=== PATIENT | female | born 1960 | race Caucasian/White ===

== ENCOUNTER 2018-07-19 14:12 | Emergency (ER) | payer OTHER ==
[~2018-07-19] VITALS: Ht 154.9 cm; Wt 73.0 kg
[2018-07-19 15:18] VITALS: Ht 154.9 cm; Wt 73.0 kg
[2018-07-19] MEDS ORDERED: ONDANSETRON 4 MG INJ IV STA (16:26)
[2018-07-19] MEDS ORDERED: SOD CHLORIDE 0.9% 1,000 ML IV STA (16:26)
[2018-07-19] MEDS ORDERED: IPRATROPIUM (NEB) 0.5 MG/2.5 ML AMP NEB STA (16:26)
[2018-07-19] MEDS ORDERED: ALBUTEROL 0.083% (NEB) 2.5 MG/3 ML AMP NEB STA (16:26)
[2018-07-19] MEDS ORDERED: morphine 4 MG/ML VIAL IV STA (16:26)
[2018-07-19] MEDS ORDERED: BENZONATATE 100 MG CAP PO ONE (16:30)
--- NOTE | 2018-07-19 16:30 | ERD ---
ER Documentation Chief Complaint Chief Complaint SORE THROAT WITH COUGH-WORSE AT NIGHT X 1 WEEK, HX HTN & DM HPI This is a 58-year-old female with a known history of wwg-[id number]-yboiwxrhf diabetes mellitus hypertension and high cholesterol the presents to the emergency department complaining of a productive cough for the past 1 week. The patient indicates her symptoms are worse at night. She also indicates that she has been experiencing a sore throat. She has no shortness of breath at rest or exertion. She had no recent travel or hospitalizations. She has had no sick contacts. She had a tactile fever with shaking and chills. She has not taken any antibiotics or gpeh-fha-verhqqd medications. ROS All systems reviewed and are negative except as per history of present illness. Medications Home Meds Active Scripts Benzonatate* (Tessalon Perle*) 100 Mg Capsule, 100 MG PO Q8H PRN for COUGH for 10 Days, CAP Prov:LIZETH GUTIERREZ MD 07/19/18 Ibuprofen* (Motrin*) 600 Mg Tab, 600 MG PO Q6H PRN for PAIN AND OR ELEVATED TEMP, #30 TAB Prov:LIZETH GUTIERREZ MD 07/19/18 Azithromycin* (Zithromax*) 250 Mg Tablet, 250 MG PO DAILY for 4 Days, TAB Prov:LIZETH GUITERREZ MD 07/19/18 Reported Medications Glimepiride* (Glimepiride*) 1 Mg Tablet, 1 MG PO WITH BREAKFAST, TAB 07/19/18 Ergocalciferol (Vitamin D2) (VITAMIN D2) 2,000 Unit Tablet, 2000 UNIT PO DAILY, TAB 07/19/18 Metformin Hcl* (Metformin Hcl*) 850 Mg Tablet, 850 MG PO AC A, #60 TAB THREE TIMES DAILY 07/19/18 Aspirin (Low Dose Aspirin) 81 Mg Tablet.dr, 81 MG PO DAILY, #30 TAB 07/19/18 Losartan Potassium* (Losartan Potassium*) 50 Mg Tablet, 50 MG PO DAILY, TAB 07/19/18 Atorvastatin* (Atorvastatin*) 40 Mg Tablet, 50 MG PO QHS, #30 TAB PT TAKE 1 40MG TAB AND 1/2 OF A 20MG 07/19/18 Calcium Carbonate/Vitamin D3 ([place]co 500+D Tablet) 1 Each Tablet, 1 EACH PO BID, TAB 07/19/18 Allergies Allergies: Coded Allergies: No Known Allergy (Unverified , 07/19/18) PMhx/Soc History of Surgery: Yes (CHOLECYSTECTOMY,C SECTION X3) Anesthesia Reaction: No Hx Neurological Disorder: No Hx Respiratory Disorders: No Hx Cardiac Disorders: Yes (HTN) Hx Psychiatric Problems: No Hx Miscellaneous Medical Probl: Yes (DM,HIGH CHOLESTEROL) Hx Alcohol Use: No Hx Substance Use: No Hx Tobacco Use: No Smoking Status: Never smoker Physical Exam Vitals Vital Signs Date Temp Pulse Resp B/P (MAP) Pulse Ox O2 O2 Flow FiO2 Time Delivery Rate 07/19/18 98.3 90 22 137/86 99 Room Air 18:30 (103) 07/19/18 87 14 98 21 16:46 07/19/18 99.1 91 20 173/85 97 15:18 (114) Physical Exam Constitutional:Well-developed. Well-nourished. HEENT:Normocephalic. Atraumatic.Pupils were equal round reactive to light. Moist mucous membranes.No tonsillar exudates with enlargement of both tonsils and uvula is midline. Erythema both tonsils. Neck: No nuchal rigidity. No lymphadenopathy. No posterior cervical spine tenderness or step-offs. Respiratory: Not using accessory muscles of respiration.Lungs were clear to auscultation bilaterally. No rhonchi. No rales. Mild wheezing on end auscu ltation bilaterally Cardiovascular: Regular rate regular rhythm.No murmurs. No rubs were appreciated .S1, S2 normal. Distal pulses are palpable 2+ bilaterally. GI: Abdomen was soft. Nontender. Non Distended. No pulsatile abdominal masses or bruits. No rebound. No guarding. Bowel sounds were present and normal. Muscle skeletal: Full range of motion of both the upper and lower extremities bilaterally.Normal muscle tone.No assymetrical calf tenderness or swelling. Skin: No petechia, no purpura. No lesions on the palms or the soles of the feet. No maculopapular rash. NEURO: Patient was alert, awake, orientated x3.No facial droop. Gait observed and normal with no ataxia.Speech had regular rate and rhythm. No focal neurological deficits. Result Diagram: 07/19/18 1639 07/19/18 1639 Results 24 hrs Laboratory Tests Test 07/19/18 16:07 07/19/18 16:39 POC Beta HCG, Qualitative NEGATIVE White Blood Count 14.3 10^3/ul Red Blood Count 4.36 10^6/ul Hemoglobin 12.8 g/dl Hematocrit 39.1 % Mean Corpuscular Volume 89.7 fl Mean Corpuscular Hemoglobin 29.4 pg Mean Corpuscular Hemoglobin Concent 32.7 g/dl Red Cell Distribution Width 13.1 % Platelet Count 297 10^3/UL Mean Platelet Volume 9.7 fl Immature Granulocytes % 0.600 % Neutrophils % 63.0 % Lymphocytes % 26.2 % Monocytes % 7.3 % Eosinophils % 2.5 % Basophils % 0.4 % Nucleated Red Blood Cells % 0.0 /100WBC Immature Granulocytes # 0.080 10^3/ul Neutrophils # 9.0 10^3/ul Lymphocytes # 3.8 10^3/ul Monocytes # 1.0 10^3/ul Eosinophils # 0.4 10^3/ul Basophils # 0.1 10^3/ul Nucleated Red Blood Cells # 0.0 10^3/ul Prothrombin Time 11.8 Sec Prothrombin Time Ratio 0.9 INR International Normalized Ratio 0.86 Activated Partial Thromboplast Time 31.2 Sec Sodium Level 143 mmol/L Potassium Level 4.2 mmol/L Chloride Level 102 mmol/L Carbon Dioxide Level 28 mmol/L Anion Gap 13 Blood Urea Nitrogen 14 mg/dl Creatinine 0.87 mg/dl Est Glomerular Filtrat Rate mL/min > 60 mL/min Glucose Level 122 mg/dl Calcium Level 10.0 mg/dl Total Bilirubin 0.1 mg/dl Direct Bilirubin 0.00 mg/dl Indirect Bilirubin 0.1 mg/dl Aspartate Amino Transf (AST/SGOT) 26 IU/L Alanine Aminotransferase (ALT/SGPT) 33 IU/L Alkaline Phosphatase 104 IU/L Troponin I < 0.012 ng/ml B-Type Natriuretic Peptide 82 PG/ML Total Protein 8.3 g/dl Albumin 4.5 g/dl Globulin 3.80 g/dl Albumin/Globulin Ratio 1.18 Current Medications Medications Dose Sig/Courtney Start Time Status Last (Trade) Ordered Route PRN Stop Time Admin Dose Reason Admin Sodium 1,000 ml @ Q1H STAT 07/19/18 DC 07/19/18 Chloride 1,000 mls/hr IV 16:26 16:49 07/19/18 17:25 Albuterol 5 mg ONCE STAT 07/19/18 DC 07/19/18 (Proventil NEB 16:26 16:44 0.083% (Neb)) 07/19/18 16:28 Ipratropium 0.5 mg ONCE STAT 07/19/18 DC 07/19/18 [place] NEB 16:26 16:44 (Atrovent 07/19/18 16:28 0.02% (Neb)) Morphine 4 mg ONCE STAT 07/19/18 DC 07/19/18 Sulfate IV 16: 16:49 (morphine) 07/19/18 16:28 Ondansetron 4 mg ONCE STAT 07/19/18 DC 07/19/18 HCl (Zofran IV 16: 16:49 Inj) 07/19/18 16:28 Benzonatate 100 mg ONCE ONCE 07/19/18 DC 07/19/18 (Tessalon) PO 16:30 16:54 07/19/18 16:31 Procedures/MDM This is a 58-year-old female that presented to the emergency department with a flulike illness. The patient did show signs of clinical dehydration and was placed on sports statistician continuous pulse oximetry and IV access was established by nursing staff. The patient was given intravenous morphine and Zofran for analgesic control and Tessalon Perles for cough. The patient was hypertensive when she arrived into the emergency department there is no signs of endorgan damage to suggest hypertensive emergency or urgency. The patient had a chest radiograph which showed no infiltrates pneumothorax or pleural effusions. 12 Lead EKG tracing ordered and reviewed by myself showed: Normal sinus rhythm of 83 bpm and no arrhythmia. TX interval normal. QRS duration normal. No ST segment elevation No ST segment depression. No changes consistent with acute ischemia. Observation Note: Time: 4 hours Family Hx: No Hypertension Evaluation: Multiple exams showed improving symptoms and no evidence of Reagan's angina or other acute life-threatening etiology. The patient had significant improvement of her symptoms. She will be discharged home with azith romycin to prevent secondary bacterial infection. The patient was discharged home in fair condition. They were instructed to return to the emergency department at any time if there was any worsening of their condition. The patient stated they would follow up with their PCP in the next 24-48 hours to initiate a suitable medication regimen under the care of their PCP as well as to allow their PCP to monitor any drug reactions. The patient was discharged home with prescriptions after they gave informed consent to the new medication. They were also fully informed by myself on the adverse effects and adverse drug interactions in order to provide adequate safeguards to prevent possible adverse reactions to medications. Departure Diagnosis: Primary Impression: Cough Additional Impression: Pharyngitis Pharyngitis/tonsillitis etiology: unspecified etiology Qualified Codes: J02.9 - Acute pharyngitis, unspecified Condition: LIZETH Healy MD Jul 19, 2018 16:30
[2018-07-19] MEDS ORDERED: CALC1TAB79 PO (17:06)
[2018-07-19] MEDS ORDERED: LOSA50TA14 PO (17:07)
[2018-07-19] MEDS ORDERED: ASPI81TA52 PO (17:07)
[2018-07-19] MEDS ORDERED: ATOR40TA68 PO (17:07)
[2018-07-19] MEDS ORDERED: ERGO2000 PO (17:08)
[2018-07-19] MEDS ORDERED: METF850T13 PO (17:08)
[2018-07-19] MEDS ORDERED: GLIM1TAB2 PO (17:09)
[2018-07-19] MEDS ORDERED: IBUP-1542 PO (20:42)
[2018-07-19] MEDS ORDERED: BENZ-6 PO (20:42)
[2018-07-19] MEDS ORDERED: AZIT250T PO (20:42)
[2018-07-19] MEDS ORDERED: KETOROLAC 30 MG INJ IV STA (21:04)
[2018-07-19] MEDS ORDERED: AZITHROMYCIN 250 MG TAB PO ONE (21:30)
[2018-07-19 22:00] VITALS: BP 137/76; PULSE 83; RESP 20
== END 2018-07-19 22:32 | disposition home or self-care (01) ==
LOC: E/R 14:12
DX: J02.9 Acute pharyngitis, unspecified (principal); I10 Essential (primary) hypertension; E11.9 Type 2 diabetes mellitus without complications; R07.9 Chest pain, unspecified; Z79.82 Long term (current) use of aspirin; Z79.84 Long term (current) use of oral hypoglycemic drugs
CPT/HCPCS: 71045; 80053; 81025; 83880; 84484; 85025; 85610; 85730; 87400; 93005; 94664; 96361; 96374; 96375; J1885; J2270; J2405; J7030; Z7502; Z7610